=== PATIENT | male | born 1990 | race Two or more races ===

== ENCOUNTER 2019-09-14 20:05 | Inpatient (IN) | payer OTHER ==
[~2019-09-14] VITALS: Ht 167.6 cm; Wt 65.6 kg
[2019-09-14] MEDS ORDERED: BUSP10TA23 PO (21:08)
[2019-09-14] MEDS ORDERED: ACID1TAB13 PO (21:08)
[2019-09-14] MEDS ORDERED: THIA100T80 PO (21:08)
[2019-09-14] MEDS ORDERED: MELA5TAB3 PO (21:08)
[2019-09-14 21:37] LABS: BASOPHILS % (AUTO) 0.7 % (0.0-2.0); HEMATOCRIT 42.9 % (41-53); HEMOGLOBIN 14.1 g/dL (13.5-17.5); LYMPHOCYTES # (AUTO) 5.2 K/uL (1.0-4.8); MEAN CORPUSCULAR HEMOGLOBIN 27.6 pg (26.0-34.0); MEAN CORPUSCULAR HGB CONC 32.8 G/dL (31.0-37.0); MEAN CORPUSCULAR VOLUME 84 fL (80-100); MONOCYTES % (AUTO) 7.6 % (2.0-9.0); NEUTROPHILS # (AUTO) 6.9 K/uL (1.8-7.7); NEUTROPHILS % (AUTO) 51.7 % (40.0-70.0); PLATELET COUNT (AUTO) 325 K/uL (150-450); RED CELL DISTRIBUTION WIDTH 14.3 % (11.5-14.5)
[2019-09-14 21:47] LABS: ANION GAP 9 mmol/L (8-16); CALCIUM, TOTAL 9.1 mg/dL (8.8-10.5); CARBON DIOXIDE 25 mmol/L (22-29); CHLORIDE 103 mmol/L (98-107); CREATININE 0.84 mg/dL (0.60-1.30); GLOMERULAR FILTR. RATE CALC > 60 mL/min (>60); GLUCOSE,RANDOM 98 mg/dL (70-110); POTASSIUM 4.6 mmol/L (3.5-5.1); SODIUM SERUM 137 mmol/L (136-145); UREA NITROGEN, BLOOD 21 mg/dL (7-18)
[2019-09-14 21:53] LABS: ALANINE AMINOTRANSFERASE 34 U/L (12-78); ALKALINE PHOSPHATASE 91 U/L (46-116); ASPARTATE AMINOTRANSFERASE 21 U/L (15-37); BILIRUBIN,TOTAL 0.9 mg/dL (0.1-1.0); TOTAL PROTEIN, SERUM 8.4 g/dL (6.4-8.2)
[2019-09-14] MEDS ORDERED: MAGNESIUM HYDROXIDE SUSPENSION 30 ML UDCUP PO PRN (22:30)
[2019-09-14] MEDS ORDERED: ONDANSETRON HCL 4 MG/2 ML VIAL IVP PRN (22:30)
[2019-09-14] MEDS ORDERED: 0.9% SODIUM CHLORIDE 10 ML SYRINGE IVP PRN (22:30)
[2019-09-14] MEDS ORDERED: ACETAMINOPHEN 325 MG TABLET PO PRN (22:30)
[2019-09-15] VITALS (7 sets, daily range): BP systolic 118–137; BP diastolic 50–93
[2019-09-15 02:44] LABS: AMPHET/METH SCREEN,URINE NEGATIVE (NEGATIVE); BARBITURATE SCREEN, URINE NEGATIVE (NEGATIVE); BENZODIAZEPINES SCREEN,URINE NEGATIVE (NEGATIVE); CANNABINOID SCREEN,URINE NEGATIVE (NEGATIVE); COCAINE SCREEN,URINE NEGATIVE (NEGATIVE); METHADONE SCREEN, URINE NEGATIVE (NEGATIVE); OPIATE SCREEN,URINE POSITIVE (NEGATIVE); PHENCYCLIDINE SCREEN,URINE NEGATIVE (NEGATIVE)
[2019-09-15] MEDS ORDERED: LORazepam 2 MG TABLET PO PRN (03:45)
[2019-09-15] MEDS: FAMOTIDINE 20 MG TABLET PO SCH ×2 (09:41→09:44)
[2019-09-15 09:47] LABS: GLUCOMETER DEV NAME(LOC) PVLAB.13
[2019-09-15 11:04] LABS: BASOPHILS % (AUTO) 1.1 % (0.0-2.0); EOSINOPHILS % (AUTO) 1.3 % (1.0-6.0); HEMOGLOBIN 13.3 g/dL (13.5-17.5); LYMPHOCYTES # (AUTO) 4.1 K/uL (1.0-4.8); LYMPHOCYTES % (AUTO) 38.6 % (22.0-44.0); MEAN CORPUSCULAR HEMOGLOBIN 28.4 pg (26.0-34.0); MEAN CORPUSCULAR HGB CONC 34.1 G/dL (31.0-37.0); MEAN CORPUSCULAR VOLUME 83 fL (80-100); MONOCYTES # (AUTO) 0.8 K/uL (0.1-1.0); MONOCYTES % (AUTO) 7.1 % (2.0-9.0); NEUTROPHILS # (AUTO) 5.5 K/uL (1.8-7.7); NEUTROPHILS % (AUTO) 51.9 % (40.0-70.0); PLATELET COUNT (AUTO) 318 K/uL (150-450); RED BLOOD CELL COUNT(AUTO) 4.68 MIL/uL (4.50-5.90); RED CELL DISTRIBUTION WIDTH 14.4 % (11.5-14.5)
[2019-09-15] MEDS: ChlordiazePOXIDE HCL 25 MG CAPSULE PO SCH ×2 (12:45→20:33)
[2019-09-15] MEDS: MULTIVITAMINS WITH MINERALS, THERAPEUTIC TABLET PO SCH (12:45)
[2019-09-15 14:23] LABS: GLUCOMETER DEV NAME(LOC) PVLAB.13
[2019-09-15] MEDS: NICOTINE 21 MG/24 HOUR PATCH TD SCH (17:26)
[2019-09-15] MEDS: ACETAMINOPHEN 325 MG TABLET PO PRN (18:43)
[2019-09-16 04:00] VITALS: BP 132/81
[2019-09-16 07:21] VITALS: BP 129/91
[2019-09-16] MEDS: MULTIVITAMINS WITH MINERALS, THERAPEUTIC TABLET PO SCH (08:10)
[2019-09-16] MEDS: FAMOTIDINE 20 MG TABLET PO SCH (08:10)
[2019-09-16] MEDS: ChlordiazePOXIDE HCL 25 MG CAPSULE PO SCH ×2 (08:12→11:47)
[2019-09-16] MEDS: NICOTINE 21 MG/24 HOUR PATCH TD SCH (08:12)
[2019-09-16] MEDS: ACETAMINOPHEN 325 MG TABLET PO PRN (11:17)
[2019-09-16 15:24] VITALS: BP 140/90
[2019-09-16 20:05] VITALS: BP 133/86
[2019-09-16] MEDS ORDERED: ChlordiazePOXIDE HCL 10 MG CAPSULE PO SCH (21:00)
== END 2019-09-16 20:35 | DRG 885 ==
LOC: EMS 20:10 → 5S 09-15 02:21 → 6S 09-15 02:51 → 6N 09-15 16:15 → 6S 09-15 16:16
PROVIDERS: ADMIT Internal Medicine; ATTEND Internal Medicine
DX: F31.5 Bipolar disorder, current episode depressed, severe, with psychotic features (principal); E43 Unspecified severe protein-calorie malnutrition; F19.10 Other psychoactive substance abuse, uncomplicated; Z87.891 Personal history of nicotine dependence; F11.90 Opioid use, unspecified, uncomplicated; B19.20 Unspecified viral hepatitis C without hepatic coma; F41.8 Other specified anxiety disorders; Z79.899 Other long term (current) drug therapy; Z68.23 Body mass index [BMI] 23.0-23.9, adult; Z03.818 Encounter for observation for suspected exposure to other biological agents ruled out
CPT/HCPCS: 87081; G0480

== ENCOUNTER 2024-12-11 22:10 | Emergency (ER) | payer OTHER, MEDICAID ==
[~2024-12-11] VITALS: Ht 182.9 cm; Wt 95.3 kg
[2024-12-11 23:33] VITALS: BP 0/0; PULSE 99; RESP 19; O2SAT 99
== END 2024-12-11 23:45 ==
LOC: EMS 22:10
DX: T40.411A Poisoning by fentanyl or fentanyl analogs, accidental (unintentional), initial encounter (principal); F41.9 Anxiety disorder, unspecified; F32.A Depression, unspecified; F17.210 Nicotine dependence, cigarettes, uncomplicated; F15.90 Other stimulant use, unspecified, uncomplicated; F11.90 Opioid use, unspecified, uncomplicated; F12.90 Cannabis use, unspecified, uncomplicated; G89.29 Other chronic pain; Z99.3 Dependence on wheelchair; Y92.89 Other specified places as the place of occurrence of the external cause
CPT/HCPCS: 99283; Z7502